=== PATIENT | female | born 1960 | race Caucasian/White ===

== ENCOUNTER 2017-03-02 19:26 | Emergency (ER) | payer OTHER ==
[2017-03-02] MEDS ORDERED: Morphine INJ* 4 MG/ML 1 ML SYRINGE IV ONE (21:30)
[2017-03-02] MEDS ORDERED: NS 0.9% 1000 ML* 1,000 ML IV ONE (21:30)
[2017-03-02] MEDS ORDERED: Ondansetron INJ* 2 MG/ML VIAL IV ONE (21:30)
[2017-03-02 22:04] LABS: Hematocrit 45 % (35-47); Hemoglobin 15.2 g/dl (12.0-16.0); Mean Corpuscular HGB Conc 34 g/dl (31-36); Mean Corpuscular Hemoglobin 31 pg (27-31); Mean Corpuscular Volume 92 fL (80-97); Mean Platelet Volume 9 um3 (7.4-10.4); Red Blood Count 4.91 10^6/ul (4.0-5.4); Red Cell Distribution Width 13 % (10.5-15); White Blood Count 12.4 10^3/ul (3.5-10.8)
[2017-03-02 22:19] LABS: Albumin 4.5 g/dL (3.2-5.2); BUN/Creatinine Ratio 25.9 (8-20); Calcium 10.1 mg/dL (8.6-10.3); EGFR African American 94.1 (>60); EGFR Non-African American 73.1 (>60); Globulin 2.9 g/dL (2-4); Total Bilirubin 1.2 mg/dL (0.2-1.0); Total Protein 7.4 g/dL (6.4-8.9)
[2017-03-02] MEDS ORDERED: Iohexol 300* (CONTRAST) 10 ML SDV IV ONE (22:33)
[2017-03-02 22:40] LABS: Urine Bacteria 1+ (Absent); Urine Bilirubin Negative (Negative); Urine Glucose Negative (Negative); Urine Nitrite Positive (Negative)
[2017-03-02 23:53] VITALS: BP 123/79
--- NOTE | 2017-03-03 00:37 | ED ---
Trent Vasques Rebecca, scribed for Tom Newton on 03/02/17 at 2130 . Complex/Multi-Sys Presentation - HPI Summary HPI Summary: Pt is a 56 y/o F who presents to ED c/o L knee pain. Pain began about 1 week ago and is now radiating up to the L knee with slight L thigh and L slaughter pain. Pain is currently moderate, ranked 5/10. Sx aggravated and alleviated by nothing , unchanged by Tylenol. Pt has been taking Tylenol to try to treat the pain, increasing her dose last night to 4 pills. After taking Tylenol last night she has been experiencing N/V, lower abdominal pain and decreased PO intake. Reports she has been unable to tolerate any food or liquid, including Cipro which was prescribed to treat UTI. - History Of Current Complaint Chief Complaint: EDGeneral Time Seen by Provider: 03/02/17 21:00 Hx Obtained From: Patient Onset/Duration: Lasting Weeks - Pain - 1 week, Still Present Severity Currently: Moderate - 5/10 Location: Pain At: - L knee, Radiates To: - L hip, thigh and slaughter Aggravating Factor(s): Nothing Alleviating Factor(s): Nothing Associated Signs And Symptoms: Positive: Nausea, Vomiting, Abdominal Pain - Lower, Decreased Oral Intake - Allergies/Home Medications Allergies/Adverse Reactions: Allergies Allergy/AdvReac Type Severity Reaction Status Date / Time No Known Allergies Allergy Verified 11/15/12 09:45 PMH/Surg Hx/FS Hx/Imm Hx Endocrine/Hematology History: Denies: Hx Diabetes, Hx Thyroid Disease Cardiovascular History: Denies: Hx Hypertension Respiratory History: Denies: Hx Asthma, Hx Chronic Obstructive Pulmonary Disease (COPD) GI History: Denies: Hx Ulcer Musculoskeletal History: Reports: Hx Osteoporosis - Surgical History Surgery Procedure, Year, and Place: exploratory lap, tubal ligation Infectious Disease History: No Infectious Disease History: Denies: Hx Hepatitis, Hx Human Immunodeficiency Virus (HIV), Traveled Outside the [place] in Last 30 Days - Family History Known Family History: Positive: Hypertension - mother, Diabetes, Other - Stroke (mother) - Social History Alcohol Use: None Substance Use Type: Reports: None Smoking Status (MU): Heavy Every Day Tobacco Smoker Review of Systems Positive: Abdominal Pain - Lower, Vomiting, Nausea, Other - Decreased PO intake Positive: Arthralgia - L knee pain with radiation to the L hip, thigh and slaughter All Other Systems Reviewed And Are Negative: Yes Physical Exam - Summary Physical Exam Summary: Appearance: Well appearing, no pain distress Skin: warm, dry, reflects adequate perfusion Head/face: normal Eyes: EOMI, MICHAEL ENT: normal Neck: supple, nontender Respiratory: CTA, breath sounds present Cardiovascular: RRR, pulses symmetrical Abdomen: tenderness over the LLQ, soft Bowel: present Musculoskeletal: strength/ROM intact, tenderness over the L leg Neuro: normal, sensory motor intact, A&Ox3 Triage Information Reviewed: Yes Vital Signs On Initial Exam: Initial Vitals Temp Pulse Resp BP Pulse Ox 97.9 F 116 20 132/91 96 03/02/17 19:42 03/02/17 19:42 03/02/17 19:42 03/02/17 19:42 03/02/17 19:42 Vital Signs Reviewed: Yes - Ian Coma Scale Coma Scale Total: 15 Diagnostics - Vital Signs Vital Signs Temp Pulse Resp BP Pulse Ox 03/02/17 20:44 99.3 F 103 20 125/76 97 03/02/17 19:42 97.9 F 116 20 132/91 96 - Laboratory Result Diagrams: 03/02/17 21:45 03/02/17 21:45 Lab Statement: Any lab studies that have been ordered have been reviewed, and results considered in the medical decision making process. - CT CT Abd/Pel CT Interpretation Completed By: Radiologist - Indeterminate subcapsular 1.1 cm hypodensity right lobe of liver, consider followup liver protocol MRI. 2.2 cm stone right renal pelvis causing caliectasis. Thickened urothelium in right renal calyces, right renal pelvis and proximal/mid right ureter, as well as proximal/mid periureteral fat stranding, question chronic inflammation due to stone versus acute urinary tract infection. Subcentimeter cortical hypodensities left kidney. No bowel obstruction, colitis, free fluid, or free air. Normal appendix. Diverticulosis colon without acute diverticulitis. Unremarkable pancreas and gallbladder. Tiny umbilical hernia containing fat. Small hiatal hernia. Arthroplasty left hip. ED physician reviewed radiology report and agrees. - Ultrasound No standard instances Ultrasound Interpretation: No Acute Changes - Venous Doppler Study: No evidence for DVT left lower extremity. ED physician reviewed radiology report and agrees. Ultrasound Interpretation Completed By: Radiologist Re-Evaluation - Re-Evaluation First Eval Re-Evaluation Time: 23:43 Change: Improved Comment: Discussed results with the pt who is feeling better. Complex Multi-Symp Course/Dx Assessment/Plan: Pt is a 56 y/o F who presents to ED c/o L knee pain. Pain began about 1 week ago and is now radiating up to the L knee with slight L thigh and L slaughter pain. Pain is currently moderate, ranked 5/10. Sx unchanged by Tylenol. Pt has been taking Tylenol to try to treat the pain, increasing her dose last night to 4 pills. After taking Tylenol last night she has been experiencing N/V, lower abdominal pain and decreased PO intake. Reports she has been unable to tolerate any food or liquid, including Cipro which was prescribed to treat UTI. Venous doppler study negative. CT results described above. UA positive for UTI. In the ED course, pt was given morphine, zofran and fluids which improved sx. She will be D/C to home with Dx of UTI, Rx for Percocet and Zofran and a follow up with her PCP. She understands and agrees. Elevated BP noted. - Diagnoses Differential Diagnoses/HQI/PQRI: Urinary Tract Infection, Other - Diverticulitis , renal colic, DVT Provider Diagnoses: UTI (urinary tract infection) Discharge - Discharge Plan Condition: Stable Disposition: HOME Prescriptions: Ondansetron ODT TAB* [Zofran 4 MG Odt TAB*] 4 mg PO Q8H PRN #20 tab.odt MDD 3 PRN Reason: Vomiting oxyCODONE/Acetamin 5/325 MG* [Percocet 5/325 TAB*] 1 tab PO Q8H PRN #9 tab MDD 3 PRN Reason: Pain Patient Education Materials: Urinary Tract Infection in Women (ED) Referrals: Prachi Randall MD [Primary Care Provider] - 2 Days The documentation as recorded by the Trent dorantes Rebecca accurately reflects the service I personally performed and the decisions made by , Tom Newton.
--- NOTE | 2017-03-03 07:14 | RAD ---
INDICATION: Pain and swelling. COMPARISON: None TECHNIQUE: Duplex interrogation of the Lowerextremity was performed. FINDINGS: Deep veins: The common femoral, great saphenous, profunda femoris, proximal, mid, and distal deep femoral, popliteal, posterior tibial, and peroneal veins are patent. There is normal compressibility, augmentation, and phasic flow. Superficial veins: There are no findings of superficial thrombophlebitis. Popliteal fossa:There is no evidence of a popliteal cyst. Soft tissues:There are no soft tissue abnormalities. IMPRESSION: Normal examination. No evidence of deep venous thrombosis
--- NOTE | 2017-03-03 07:28 | RAD ---
INDICATION: Left lower quadrant tenderness evaluate for diverticulitis. COMPARISON: There are no prior studies available for comparison. TECHNIQUE: A CT scan of the abdomen and pelvis was performed with intravenous and oral contrast following intravenous injection of 107 ml of Omnipaque 300 nonionic contrast. Contiguous axial sections were obtained from the lung bases through the symphysis pubis. Images were reconstructed in the coronal and sagittal planes. FINDINGS: The lung bases are clear. No pleural effusion is present. The liver and spleen are normal in size. The liver is decreased in attenuation consistent with fatty infiltration. There are 2 hypodense areas present within the liver. One is located in the superior subcapsular region of the right hepatic lobe measuring 1.1 x 0.8 cm in size and the second located in the anterior portion of the right hepatic lobe adjacent to the gallbladder fossa measuring 0.8 cm in size. No calcified gallstones are seen. The pancreas appears to be within normal limits. There is a large calculus in the right renal pelvis measuring 2.0 x 1.3 x 1.6 cm in size. This is causing mild dilatation of the pelvis and mild caliectasis. There is thickening of the wall of the renal pelvis and proximal ureter with adjacent stranding in the fat around these regions. There are couple small subcentimeter hypodense areas present in the left kidney most consistent with cysts. The adrenal glands appear to be within normal limits. The aorta is normal in caliber with moderate calcific plaque present. No significant enlarged retroperitoneal lymph nodes are seen. There is a small hiatal hernia. The stomach, small and large bowel appear nondistended. The appendix is within normal limits. There is mild sigmoid diverticulosis. There is no evidence for diverticulitis or colitis. There is a small periumbilical hernia containing fat. The uterus is anteverted and normal in size. No free intraperitoneal air or fluid is seen. There is a moderate lumbar scoliosis convex toward the left side. The patient is status post total left hip replacement surgery. No other focal osseous abnormalities are seen. IMPRESSION: 1. LARGE CALCULUS WITHIN THE RIGHT RENAL PELVIS CAUSING MILD HYDRONEPHROSIS. THERE IS THICKENING OF THE WALL OF THE RENAL PELVIS AND PROXIMAL URETER WITH STRANDING IN THE ADJACENT METASTATIC RETROPERITONEAL FAT POSSIBLY SECONDARY TO CHRONIC INFLAMMATION VERSUS AN ACUTE URINARY TRACT INFECTION. RECOMMEND CLINICAL CORRELATION. 2. THERE ARE 2 SMALL HYPODENSE AREAS PRESENT WITHIN THE LIVER RECOMMEND FURTHER IMAGING WITH AN MRI OF THE LIVER WITHOUT AND WITH CONTRAST.
== END 2017-03-03 00:01 | disposition home or self-care (01) ==
LOC: ED 19:26
DX: S06.0X0A Concussion without loss of consciousness, initial encounter (principal); R11.0 Nausea; R51 Headache; H53.8 Other visual disturbances; W21.02XA Struck by soccer ball, initial encounter; Y93.66 Activity, soccer; Y92.9 Unspecified place or not applicable
CPT/HCPCS: 36415; 74177; 80053; 81003; 81015; 83690; 84484; 85025; 85610; 85730; 87086; 99283; J2270; J2405; Q9967

== ENCOUNTER 2017-03-29 04:28 | Observation (INO) | payer OTHER ==
[2017-03-29] MEDS ORDERED: Ondansetron INJ* 2 MG/ML VIAL IV ONE (07:25)
[2017-03-29] MEDS ORDERED: NS 0.9% 1000 ML* 1,000 ML IV ONE ×2 (07:25→08:58)
[2017-03-29] MEDS ORDERED: Cyclobenzaprine TAB* 10 MG PO ONE (07:28)
[2017-03-29] MEDS ORDERED: Ibuprofen TAB* 600 MG PO ONE (07:28)
--- NOTE | 2017-03-29 08:07 | RAD ---
HISTORY: Headache and pain COMPARISONS: None TECHNIQUE: Multiple contiguous axial CT scans were obtained of the head without intravenous contrast. FINDINGS: HEMORRHAGE/INFARCT: There is no hemorrhage or acute infarct. MASSES/SHIFT: There is no mass or shift. EXTRA-AXIAL SPACES: There are no extra-axial fluid collections. SULCI AND VENTRICLES: The sulci and ventricles are normal in size and position for the patient's stated age. CEREBRUM: There are no focal parenchymal abnormalities. BRAINSTEM: There are no focal parenchymal abnormalities. CEREBELLUM: There are no focal parenchymal abnormalities. VESSELS: The vessels are grossly normal. PARANASAL SINUSES: The paranasal sinuses are clear. ORBITS: The orbits are unremarkable. BONES AND SOFT TISSUE: No bone or soft tissue abnormalities are noted. OTHER: None IMPRESSION: NO ACUTE INTRACRANIAL PATHOLOGY.
--- NOTE | 2017-03-29 08:25 | RAD ---
INDICATION: Headache and pain between the shoulder blades. No breathing complaint. Tobacco use. COMPARISON: March 02, 2017 CT abdomen. May 02, 2006 chest radiograph. TECHNIQUE: Dual energy PA and routine lateral views of the chest were obtained. REPORT: Mild prominence of the interstitial markings and patchy upper lung zone rarefaction. No focal pulmonary lesion, compelling alveolar consolidation, pleural effusion, pneumothorax. The heart, pulmonary vasculature, and mediastinal contours are unremarkable. Thoracic degenerative spondylosis and mild RIGHT convex curve. No thoracic fracture evident. IMPRESSION: Stigmata of potential chronic obstructive pulmonary disease and emphysema. No acute cardiopulmonary process evident.
--- NOTE | 2017-03-29 08:25 | RAD ---
HISTORY: Headache, joint pain COMPARISONS: None TECHNIQUE: Multiple contiguous axial CT scans were obtained of the cervical spine without intravenous contrast, with coronal and sagittal multiplanar reformations. FINDINGS: BRAIN: The visualized brain is unremarkable CENTRAL CANAL: Evaluation of the central canal is limited on CT technique; however, there is no obvious canalicular mass or epidural hemorrhage. ALIGNMENT: There is straightening of the cervical lordosis. VERTEBRAL BODIES: There is multilevel anterolateral marginal osteophyte formation. This most pronounced at C5-C6 and C6-C7. JOINTS: There is uncovertebral and facet osteoarthritis. MUSCULATURE: Unremarkable INTERVERTEBRAL DISCS: There is diffuse loss of intervertebral disc height. AXIAL IMAGES: C2-C3: There is no osseous neural foraminal narrowing or central canal stenosis. C3-C4: There is no osseous neural foraminal narrowing or central canal stenosis. C4-C5: There is right greater than left uncovertebral and facet hypertrophy. There is moderate right neural foraminal narrowing. There is no osseous central canal stenosis. C5-C6: There is bilateral uncovertebral and facet hypertrophy. There is moderate right and mild left neural foraminal narrowing. There is no osseous central canal stenosis. C6-C7: There is bilateral vertebral and facet hypertrophy. There is moderate left and mild right neural foraminal narrowing. There is no osseous central canal stenosis. C7-T1: There is no osseous neural foraminal narrowing or central canal stenosis. SOFT TISSUES: The visualized soft tissues of the neck are unremarkable. The prevertebral fat stripe is preserved. OTHER: None. IMPRESSION: 1. STRAIGHTENING OF THE CERVICAL LORDOSIS. 2. DEGENERATIVE DISC DISEASE AND OSTEOARTHRITIS. 3. THERE IS MULTILEVEL NEURAL FORAMINAL NARROWING DESCRIBED ABOVE. THERE IS NO OSSEOUS CENTRAL CANAL STENOSIS.
[2017-03-29 08:27] LABS: Hematocrit 41 % (35-47); Hemoglobin 13.8 g/dl (12.0-16.0); Mean Corpuscular HGB Conc 34 g/dl (31-36); Mean Corpuscular Hemoglobin 31 pg (27-31); Mean Corpuscular Volume 91 fL (80-97); Mean Platelet Volume 9 um3 (7.4-10.4); Red Blood Count 4.52 10^6/ul (4.0-5.4); Red Cell Distribution Width 13 % (10.5-15); White Blood Count 7.3 10^3/ul (3.5-10.8)
[2017-03-29 08:40] LABS: Albumin 4.1 g/dL (3.2-5.2); BUN/Creatinine Ratio 15.5 (8-20); C Reactive Protein 2.25 mg/L (< 5.00); Calcium 9.7 mg/dL (8.6-10.3); EGFR African American 109.5 (>60); EGFR Non-African American 85.2 (>60); Globulin 2.7 g/dL (2-4); Magnesium 1.9 mg/dL (1.9-2.7); Potassium 3.8 mmol/L (3.5-5.0); Total Bilirubin 0.5 mg/dL (0.2-1.0); Total Protein 6.8 g/dL (6.4-8.9)
[2017-03-29 08:45] LABS: Urine Bacteria Absent (Absent); Urine Bilirubin Negative (Negative); Urine Glucose Negative (Negative); Urine Nitrite Negative (Negative)
[2017-03-29] MEDS ORDERED: cefTRIAXone(*) 1 GM in NS 0.9% 50 ML* 50 ML IVPB ONE (08:56)
[2017-03-29 09:13] LABS: TSH (Thyroid Stimulating Horm) 3.82 mcIU/mL (0.34-5.60)
[2017-03-29] MEDS ORDERED: Morphine INJ* 4 MG/ML 1 ML CARPUJECT IV ONE (09:30)
[2017-03-29] MEDS ORDERED: Iohexol 350* (CONTRAST) 500 ML MDV IV ONE (09:49)
--- NOTE | 2017-03-29 11:31 | RAD ---
INDICATION: Back pain and abdominal pain. Evaluate for aortic dissection/aneurysm. Right-sided nephrolithiasis. COMPARISON: Chest x-ray same date; CT cervical spine same date; CT brain same date; CT abdomen pelvis March 02, 2017 TECHNIQUE: Axial source images were obtained from the thoracic inlet to the symphysis pubis following administration of 100 mL Omnipaque [address] angiographic technique coronal and sagittal reconstructed images were acquired. CHEST FINDINGS: Neck/thyroid: The visualized neck to include the thyroid appear normal. Chest wall: There are no acute abnormalities of the bony thorax or chest wall. There is no supraclavicular, infraclavicular, or axillary lymphadenopathy. Lungs : There are no pulmonary parenchymal masses or infiltrates. The pulmonary interstitium appears normal. There are no endobronchial lesions. Cardiomediastinal structures: The heart is normal in size. There is no pericardial effusion. There is no evidence of aortic aneurysm or dissection. There is borderline ectasia of the ascending aorta The pulmonary vessels appear normal. There is no CT evidence of acute pulmonary embolic disease. There is no mediastinal or hilar adenopathy. The esophagus appears normal. Pleura : There are no pleural-based masses or effusions. ABDOMINAL/PELVIC FINDINGS: Liver: The liver is normal in size. There are several hypervascular areas in the right hepatic lobe. One is in the periphery near the dome and there are at least 2 others one in the medial aspect of the inferior right hepatic lobe and one in the caudal most portion of the right hepatic lobe. These correspond to subtle hypodense lesions on the earlier CT examination. Consider flash filling hemangiomas. Suggest follow-up MR imaging. There is no ductal dilatation. Gallbladder: There are no calcified gallstones. There is no evidence of wall thickening or pericholecystic fluid. Spleen: The spleen is normal in size. There are no masses on early arterial phase imaging. Pancreas: There is no evidence of pancreatic mass or ductal dilatation. Adrenal glands: There is no evidence of adrenal mass. Kidneys: The kidneys are normal in size and position. There are prompt nephrograms and there is prompt excretion bilaterally. There are no renal parenchymal masses. There is right-sided nephrolithiasis with a 1.7 cm calculus in right renal pelvis, unchanged position. There is enhancement and thickening of the proximal right ureter with mild renal calyx and ureteral dilatation. The appearance is unchanged. Suggest urology referral. Adenopathy: There is no evidence of adenopathy by size criteria. Fluid collections: There are no free or localized fluid collections. Vessels: There is no evidence of abdominal aortic aneurysm or dissection. The visceral branches arise satisfactorily. The iliac vessels normal in caliber. There are mild intimal calcifications of the infrarenal abdominal aorta. The IVC is unremarkable GI tract: The upper GI tract is unremarkable. The terminal ileum appears, ileocecal valve, and appendix appear normal. There are scattered diverticula of the sigmoid colon. There is no CT evidence of acute diverticulitis. Pelvic organs: The uterus and adnexa appear normal. Evaluation is mildly limited due to beam hardening artifact from left hip arthroplasty. Bladder: There are no bladder masses. Evaluation is mildly limited due to beam hardening artifact from left hip arthroplasty. Abdominal and pelvic soft tissues: The extraperitoneal abdominal and pelvic soft tissues appear normal.. Osseous structures: There are no acute osseous findings. There is left hip arthroplasty IMPRESSION: 1. No CT evidence of aortic aneurysm or dissection. 2. No CT evidence of acute pulmonary embolic disease. 3. Indeterminate hypervascular hepatic lesions. Suggest follow-up MR imaging. 4. Calculus right renal pelvis with mild obstructive findings. There is uroepithelial thickening and enhancement of the proximal right ureter. Suggest urology consultation.
--- NOTE | 2017-03-29 12:34 | ED ---
Jonny Vasques Angela, scribed for Yon Conte MD on 03/29/17 at 0724 . Headache - HPI Summary HPI Summary: This pt is a 56 y/o female presenting to [facility] c/o pain across the back of her neck that radiates to her head x4 days. Pt additionally c/o upper back pain, right shoulder pain that radiates to her right arm, and right hip pain. She states mowing the lawn before the onset of her pain 4 days ago "for the first time in years." Her shoulder pain has been going on for 2 days. She notes her headache is only on one side of her head. Pt denies changes in vision, trouble swallowing, chest pain, SOB, palpitations, dizziness, syncope, abd pain, vomiting, diarrhea, dysuria, urinary frequency, weakness or numbness in UE or LE , fever. Her pain is aggravated by laying down. She denies recent fall or trauma. Pt endorses constipation. Pt has rubbed herve's vapor rub with no relief last night. She was in the ED 2 weeks ago for a UTI. Pt notes taking an aspirin every day. PMHx: TIA (2011 while reading a book). Pt does not take any anti-hypertensive medications. PSHx: total left hip replacement. NKDA. 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 - Allergies/Home Medications Allergies/Adverse Reactions: Allergies Allergy/AdvReac Type Severity Reaction Status Date / Time No Known Allergies Allergy Verified 03/29/17 05:01 Home Medications: Home Medications Aspirin TAB* [Aspirin 325 MG TAB*] 325 mg PO DAILY 03/29/17 [History Confirmed 03/29/17] PMH/Surg Hx/FS Hx/Imm Hx Endocrine/Hematology History: Denies: Hx Diabetes, Hx Thyroid Disease Cardiovascular History: Denies: Hx Hypertension Respiratory History: Denies: Hx Asthma, Hx Chronic Obstructive Pulmonary Disease (COPD) GI History: Denies: Hx Ulcer History: Denies: Hx Renal Disease Musculoskeletal History: Reports: Hx Osteoporosis Neurological History: Reports: Hx Transient Ischemic Attacks (TIA) - Surgical History Surgery Procedure, Year, and Place: exploratory lap, tubal ligation Infectious Disease History: No Infectious Disease History: Denies: Hx Hepatitis, Hx Human Immunodeficiency Virus (HIV), Traveled Outside the [place] in Last 30 Days - Family History Known Family History: Positive: Cardiac Disease - Mother: [place], Hypertension - mother, Diabetes, Other - Stroke (mother) - Social History Alcohol Use: None Substance Use Type: Reports: None Smoking Status (MU): Heavy Every Day Tobacco Smoker Review of Systems Negative: Fever, Chills Negative: Blurred Vision ENT: Negative Negative: Palpitations, Chest Pain Negative: Shortness Of Breath Positive: Other - constipation. Negative: Abdominal Pain, Vomiting, Diarrhea, Nausea Positive: Other - upper back pain, neck pain, right arm pain, right hip pain Skin: Negative Positive: Headache. Negative: Weakness All Other Systems Reviewed And Are Negative: Yes Physical Exam Triage Information Reviewed: Yes Vital Signs On Initial Exam: Initial Vitals Temp Pulse Resp BP Pulse Ox 98.2 F 88 16 169/100 98 03/29/17 04:50 03/29/17 04:50 03/29/17 04:50 03/29/17 04:50 03/29/17 04:50 Vital Signs Reviewed: Yes Appearance: Positive: Well-Appearing, No Pain Distress Skin: Positive: Warm, Skin Color Reflects Adequate Perfusion Head/Face: Positive: Normal Head/Face Inspection Eyes: Positive: EOMI ENT: Positive: Normal ENT inspection Neck: Positive: Other: - patient has tenderness in the upper c spine and worse with range of motion. No step off. Negative: Nuchal Rigidity Respiratory/Lung Sounds: Positive: Clear to Auscultation, Breath Sounds Present Cardiovascular: Positive: RRR. Negative: Murmur Abdomen Description: Positive: Nontender Musculoskeletal: Positive: Strength/ROM Intact Neurological: Positive: Sensory/Motor Intact, Alert, Oriented to Person Place, Time, CN Intact II-III Psychiatric: Positive: Normal - Oak Coma Scale Best Eye Response: 4 - Spontaneous Best Motor Response: 6 - Obeys Commands Best Verbal Response: 5 - Oriented Diagnostics - Vital Signs Vital Signs Temp Pulse Resp BP Pulse Ox 03/29/17 04:50 98.2 F 88 16 169/100 98 - Laboratory Result Diagrams: 03/29/17 08:10 03/29/17 08:10 Lab Statement: Any lab studies that have been ordered have been reviewed, and results considered in the medical decision making process. - Radiology Chest XR Xray Interpretation: Positive (See Comments) - IMPRESSION:stigmata of potential chronic obstructive pulmonary disease and emphysema. No acute cardiopulmonary process evident. ED physician has reviewed this radiology report and agrees. Radiology Interpretation Completed By: Radiologist - CT Brain CT CT Interpretation: No Acute Changes - IMPRESSION: No acute intracranial pathology. ED physician has reviewed this radiology report and agrees. CT Interpretation Completed By: Radiologist Cervical spine CT CT Interpretation: Positive (See Comments) - IMPRESSION: 1. STRAIGHTENING OF THE CERVICAL LORDOSIS. 2. DEGENERATIVE DISC DISEASE AND OSTEOARTHRITIS. 3. THERE IS MULTILEVEL NEURAL FORAMINAL NARROWING DESCRIBED ABOVE. THERE IS NO OSSEOUS CENTRAL CANAL STENOSIS. ED physician has reviewed this radiology report and agrees. CT Interpretation Completed By: Radiologist - EKG 0756 Cardiac Rate: NL - 74 bpm EKG Rhythm: Sinus Rhythm EKG Interpretation: No STEMI - Additional Comments Diagnostic Additional Comments: Chest/Abd/Pel CTA: IMPRESSION: 1. No CT evidence of aortic aneurysm or dissection. 2. No CT evidence of acute pulmonary embolic disease. 3. Indeterminate hypervascular hepatic lesions. Suggest follow-up MR imaging. 4. Calculus right renal pelvis with mild obstructive findings. There is uroepithelial thickening and enhancement of the proximal right ureter. Suggest urology consultation. ED physician has reviewed this radiology report and agrees. Re-Evaluation - Re-Evaluation First Eval Re-Evaluation Time: 09:19 Change: Unchanged Comment: The patient keeps complaining of pain in between her shoulder blades. She has had pain in right side of pelvis and hip without any imparement in ROM. She felt nauseated earlier with mild ache in low abdomen. This could be UTI as she has a UTI by labs, but she is complaining of more pain than one would expect between her shoulders. Will do CTA to eval aorta and be sure no other acute serious cause of her pain. Headache Course/Dx - Course Assessment/Plan: Pt is a 56 y/o female c/o pain across the back of her neck that radiates to her head x4 days. Pt additionally c/o upper back pain, right shoulder pain that radiates to her right arm, and right hip pain. She states mowing the lawn before the onset of her pain 4 days ago "for the first time in years." Chest XR reveals stigmata of potential chronic obstructive pulmonary disease and emphysema. No acute cardiopulmonary process evident. Cervical spine CT reveals 1. Straightening of the cervical lordosis. 2. Degenerative disc disease and osteoarthritis. 3. There is multilevel neural foraminal narrowing as described above. There is no osseous central canal stenosis. Brain CT is negative for acute intracranial pathology. ED physician has reviewed this radiology report and agrees. Discussed with Dr Lang and Dr Avilez and she will be admitted for a stent, and pyelonephritis - Diagnoses Provider Diagnoses: Pyelonephritis, Ureter obstruction - Physician Notifications Discussed Care Of Patient With: Kevin Lang Time Discussed With Above Provider: 11:45 Instructed by Provider To: Other - I spoke with Dr. Lang's nurse asking for a consult. 1222: I discussed the pt's case with Dr. Lang. 1231: I spoke with Dr. Avilez, hospitalist. Discharge - Discharge Plan Condition: Good Disposition: ADMITTED TO [facility] Referrals: Prachi Randall MD [Primary Care Provider] - The documentation as recorded by the Jonny dorantes Angela accurately reflects the service I personally performed and the decisions made by me, Yon Conte MD.
[2017-03-29] MEDS ORDERED: Cyclobenzaprine TAB* 10 MG PO PRN (13:28)
[2017-03-29] MEDS ORDERED: Ondansetron INJ* 2 MG/ML VIAL IV PRN (13:28)
[2017-03-29] MEDS ORDERED: Acetaminophen TAB* 325 MG PO PRN (13:28)
[2017-03-29] MEDS ORDERED: NS 0.9% 1000 ML* 1,000 ML IV SCH (13:30)
[2017-03-29] MEDS: HYDROmorphone INJ* 1 MG/ML CARPUJECT SYRINGE IV SLOW PU PRN ×2 (13:41→23:02)
[2017-03-29] MEDS ORDERED: Famotidine IV* 10 MG/ML 2 ML (20 mg) IV SLOW PU ONE (13:43)
[2017-03-29] MEDS: Lidocaine PATCH 5%* 1 PATCH TRANSDERM SCH (14:48)
[2017-03-29] MEDS ORDERED: Iohexol 180 (CONTRAST) 10 ML SDV IV ONE (16:37)
[2017-03-29] MEDS ORDERED: Gentamicin ADULT (*) 40 MG/ML VIAL ONE (16:43)
[2017-03-29] MEDS ORDERED: Midazolam* 1 MG/ML 5 ML VIAL (5 MG) ONE (16:51)
[2017-03-29] MEDS ORDERED: KETAMINE HCL* 50 MG/ML 10 ML VIAL ONE (16:51)
[2017-03-29] MEDS ORDERED: fentaNYL* 50 MCG/ML 2 ML VIAL (100 MCG VIAL) ONE (16:51)
--- NOTE | 2017-03-29 17:12 | HP ---
CC: Dr. Prachi Randall; Dr. Lang * HISTORY AND PHYSICAL: DATE OF ADMISSION: 03/29/17 PRIMARY CARE PROVIDER: Dr. Prachi Randall CONSULTING UROLOGIST: Dr. Lang. ATTENDING PHYSICIAN WHILE IN THE HOSPITAL: Janeth West MD * (report dictated by Pawel Elkins NP) CHIEF COMPLAINT: 1. Neck pain. 2. Headache. 3. Right flank pain. HISTORY OF PRESENTING ILLNESS: Ms. Sorto is a 56-year-old female patient who has a history of TIA only who presents to our ER today stating that over the weekend she was helping her in mow lawn and she unfortunately while mowing the lawn, she turned her back and neck and looked over her shoulder to make sure that mower was operating properly and she developed neck pain, headache, she felt that something pulled when she did this. Since then, she has been having neck pain intermittently and headache as well throughout the entire weekend. She also says that she aches allover. She has pain between her shoulder blades and she also says that she has been having some pain in her right flank and has been feeling nauseated. She denied having any fevers, denied any dysuria or any frequency. There has been no chest pain. She came into the ED. Initially, it was felt that this was almost musculoskeletal related; however, they did do imaging after they found that abnormal urine, which did show a pretty significantly sized nephrolithiasis in the right ureter. So because of this, Urology was consulted. It was felt that she was going to need stent placement and antibiotics and hospitalist service was asked to evaluate for admission. PAST MEDICAL HISTORY: Significant for TIA. PAST SURGICAL HISTORY: She has had: 1. Left total hip replacement. 2. Exploratory laparotomy. 3. Tubal ligation. MEDICATIONS: Home meds include aspirin 325 mg p.o. daily ALLERGIES: Include no known drug allergies. FAMILY HISTORY: Mother had a history of diabetes, PR and CVA. Father's history , she does not know. SOCIAL HISTORY: She is about a half pack a day smoker. She has been smoking for about 4 years. She rarely drinks alcohol, . Surrogate decision maker is her . REVIEW OF SYSTEMS: There is no documented fever. She denied having any significant weight change. There was no double vision. She denies having any ear discharge. There has been no reports of rhinorrhea. No sore throat. No thyroid enlargement. Denied having any chest pain. There has no been no orthopnea. No nocturnal dyspnea. There has been right-sided flank pain and nausea, but no vomiting, no dysuria. No frequency. There was no dysuria. No loss of consciousness. No pruritus. No skin ulcerations. Review of 14 systems completed, all others negative. PHYSICAL EXAMINATION GENERAL: At this time, Ms. Sorto is a 56-year-old female patient. She appears to be well nourished, well-developed, she is sitting in the ER stretcher. She does not appear to be in any acute distress. VITAL SIGNS: Reveals blood pressure 142/82 with a pulse of 63, respirations 18 , O2 sat 97%, and temperature 98.2. HEENT: Head: Atraumatic and normocephalic. Eyes: EOMs are intact. Sclerae anicteric and not pale. NECK: Supple. Throat: Oral mucosa appears to be moist. No oropharyngeal erythema. LUNGS: Clear to auscultation bilaterally. No wheezes, rales, or rhonchi. HEART: Sounds S1 and S2. Regular rate and rhythm. No murmurs, rubs, or gallops. ABDOMEN: Soft, flat, nontender. She did have right-sided CVA tenderness. EXTREMITIES: Pulses are 2+ throughout. She is able to move all 4 extremities with 5/5 strength. NEUROLOGIC: She is awake. She is alert. She is oriented x3. Tongue midline. Solar Sales Manager are equal. No gross focal deficits. SKIN: Grossly intact. DIAGNOSTIC STUDIES/LAB DATA: WBC 7.3, RBC of 4.52, hemoglobin 13.8, hematocrit 41, platelet count of 279. D-dimer less than 200. Sodium was 138, potassium was 3.8, chloride of 108, bicarb 24, BUN 11, creatinine 0.71, glucose 97, lactic 0.7, calcium 9.7, mag 1.9. Total bili 0.5, AST 26, ALT 40, alk phos 63. Troponin 0. CRP at 2.25. Albumin of 4.1. Urine showed 3+ blood, 2+ leukocyte esterase, 3+ WBC, 2+ rbc. She had multiple imaging in the ED. CT of the chest, abdomen, and pelvis showed no CT evidence of aortic aneurysm or dissection. No CT evidence of acute PE. Indeterminate hypervascularization hepatic lesions, suggest follow up MRI imaging. Calculus, in the right renal pelvis with mild obstructive findings. There is ureteral epithelial thickening and enhancement of the proximal ureter to suggest urology consultation. Cervical spine CT today. Impression: Strengthening of the cervical lordosis, degenerative disk disease, and osteoarthritis. There was multiple level neural foraminal narrowing as described above. No osseous central canal stenosis. Chest x-ray showed a stigmata potential chronic obstructive pulmonary disease and emphysema. No acute cardio process is evident. She did have a brain CT which showed no acute intracranial pathology. She did have an EKG obtained today, which showed a normal sinus rhythm of the rate of 74. No ST elevation or T-wave inversions. We reviewed her previous EKG , it is similar. Old medical records reviewed. ASSESSMENT AND PLAN: Ms. Sorto is a 56-year-old female patient. She is well- nourished, well-developed, she is sitting in the ER stretcher, does not appear to be in acute distress. She presented to the ER today with complaints of generalized pain and now also having right flank pain, found to have nephrolithiasis with mild obstructive uropathy and a urinary tract infection. She would be admitted under observation status for: 1. Nephrolithiasis with obstructive uropathy. At this point, Dr. Lang will take the patient to the OR later today and place a stent in the patient and he will also continue her on IV fluids and antibiotics and I will continue to follow her. I did order p.r.n. pain medications and Zofran. 2. Musculoskeletal pain. I suspect the pain that she has in her neck and head is probably from her turning her head when she was mowing a lawn and is probably musculoskeletal. CT was negative. She has no radiculopathy. At this point, we will monitor her. I did order a Lidoderm patch and will continue to follow. 3. History of transient ischemic attack. When she is able, we will restart the aspirin. 4. Fluids, electrolytes, and nutrition. She will be n.p.o. with normal saline 125 an hour. 5. DVT prophylaxis. She will be placed on SCDs. 6. Code status. Full code. TIME SPENT: Time spent on the admission was approximately 60 minutes, greater than half of the time was spent [id number] with the patient obtaining my history and physical, other half of the time spent going over the plan of care with the patient and implementing plan of care. I did discuss the plan of care with my attending, Dr. West, she is in agreement. PAWEL ELKINS, NERY [id number]/[facility] #: [id number] ARTURO
[2017-03-29] MEDS ORDERED: Propofol* 10 MG/ML 20 ML BTL IV PUSH ONE (17:31)
[2017-03-29] MEDS ORDERED: Ondansetron INJ* 2 MG/ML VIAL ONE (17:31)
[2017-03-29] MEDS ORDERED: Dexamethasone IV* 4 MG/ML 1 ML (4 MG) ONE (17:31)
[2017-03-29] MEDS ORDERED: Succinylcholine* 20 MG/ML 10 ML VIAL ONE (17:31)
[2017-03-29] MEDS ORDERED: Lidocaine 2% PF * 5 ML VIAL ONE (17:31)
[2017-03-29] MEDS ORDERED: fentaNYL* 50 MCG/ML 2 ML VIAL (100 MCG VIAL) IV PRN (17:39)
[2017-03-29] MEDS ORDERED: oxyCODONE/Acetamin 5/325 MG* TAB PO PRN (17:39)
[2017-03-29] MEDS ORDERED: PROCHLORPERAZINE INJ 5 MG/ML 2 ML VIAL IV PRN (17:39)
[2017-03-29] MEDS ORDERED: Morphine INJ* 2 MG/ML 1 ML CARPUJECT IV PRN (17:39)
[2017-03-29] MEDS ORDERED: Labetalol IV* 5 MG/ML 20 ML VIAL ONE (17:43)
--- NOTE | 2017-03-29 18:23 | RAD ---
CPT II Codes: 6045F INDICATION: Nephrolithiasis TECHNIQUE: Intraoperative fluoroscopy was provided during retrograde pyelogram and stent placement. FINDINGS: 7 spot films depict retrograde pyelography showing mild right-sided hydronephrosis followed by anatomic placement of a right ureteral stent.. Fluoroscopy time: 16 seconds IMPRESSION: As above.
--- NOTE | 2017-03-29 20:30 | RAD ---
INDICATION: Right ureteral stent placement COMPARISON: Retrograde pyelogram from the same day TECHNIQUE: A single AP view of the abdomen and pelvis was obtained. FINDINGS: There is been interval placement of a right ureteral stent. A 2 cm density overlying the right collecting system corresponds to a large calcification seen on the recent CTA. Incidentally noted is abnormal deployment of the proximal loop of the ureteral stent. IMPRESSION: INTERVAL PLACEMENT OF AN ANATOMICALLY ALIGNED RIGHT URETERAL STENT.
[2017-03-29] MEDS ORDERED: Lidocaine Patch REMOVE* 1 NOTE MISC SCH (21:00)
[2017-03-30] MEDS ORDERED: NS 0.9% 1000 ML* 1,000 ML IV SCH (01:15)
[2017-03-30 05:37] LABS: Hematocrit 38 % (35-47); Hemoglobin 12.8 g/dl (12.0-16.0); Mean Corpuscular HGB Conc 34 g/dl (31-36); Mean Corpuscular Hemoglobin 31 pg (27-31); Mean Corpuscular Volume 92 fL (80-97); Mean Platelet Volume 10 um3 (7.4-10.4); Red Blood Count 4.13 10^6/ul (4.0-5.4); Red Cell Distribution Width 13 % (10.5-15); White Blood Count 5.8 10^3/ul (3.5-10.8)
[2017-03-30 05:57] LABS: EGFR African American 150.2 (>60); EGFR Non-African American 116.8 (>60); Potassium 4.1 mmol/L (3.5-5.0)
[2017-03-30 08:16] VITALS: BP 128/96
[2017-03-30] MEDS: Lidocaine PATCH 5%* 1 PATCH TRANSDERM SCH (08:40)
[2017-03-30] MEDS ORDERED: cefTRIAXone VIAL(*) 1,000 MG in NS 0.9% 50 ML* 50 ML IVPB SCH (09:00)
--- NOTE | 2017-03-30 09:35 | OP ---
CC: Dr. Prachi Randall; Dr. Walton; Dr. Lang OPERATIVE REPORT: DATE OF OPERATION: 03/29/17 DATE OF : 60 SURGEON: Kevin Lang MD ANESTHESIOLOGIST: Dr. Holland ANESTHESIA: General. PRE-OP DIAGNOSES: 1. Calculus, right renal pelvis. 2. Right hydronephrosis. 3. Possible urinary tract infection. POST-OP DIAGNOSES: 1. Calculus, right renal pelvis. 2. Right hydronephrosis. 3. Possible urinary tract infection. OPERATIVE PROCEDURE: Cystoscopy, right retrograde pyelogram, and right stent insertion. INDICATIONS: Kinga Sorto is a 56-year-old lady who was evaluated from the emergency room for right flank pain. CT scan revealed a 1.7 cm calculus in the right renal pelvis with the right hydronephr osis and possible associated urinary infection. She is being brought in for urgent right stent inse rtion and will require either shock wave lithotripsy or percutaneous nephrolithotripsy for definitiv e treatment of the calculus. Because of the large size of the calculus, she will probably require m ultiple procedures and I have explained this to her. COMPLICATIONS: None. STENT USED: 7-Salvadorean stent, right ureter. OPERATIVE FINDINGS: 1. Large calculus right renal pelvis. 2. Retrograde pyelogram appearance consistent with partial ureteropelvic junction obstruction. POSTOPERATIVE CONDITION: Stable. DESCRIPTION OF PROCEDURE: After induction of general anesthesia, the patient was placed in dorsal l ithotomy position. Sequential compression devices were in place and functioning. Initial cystoscop y revealed a normal-appearing bladder. A guidewire was introduced into the right ureter. A large o paque calculus was noted in the region of the right renal pelvis. Retrograde pyelogram revealed a n ormal appearing ureter. There was a distinct narrowing at the right ureteropelvic junction suggesti ve of a partial UPJ obstruction. A 7-Salvadorean stent was introduced and positioned under fluoroscopic monitoring with good proximal and distal positioning obtained. The bladder was emptied. The patien t tolerated the procedure satisfactorily and was transferred back to recovery area in stable conditi on. [id number]/[facility] #: [id number]
--- NOTE | 2017-03-31 01:29 | DS ---
CC: Dr. Prachi Randall; Dr. Lang * DISCHARGE SUMMARY: DATE OF ADMISSION: 03/29/17 DATE OF DISCHARGE: 03/30/17 PRIMARY CARE PROVIDER: Dr. Prachi Randall. CONSULTING UROLOGIST: Dr. Lang. DISCHARGING PROVIDER: REBECCA Johnson. SUPERVISING PHYSICIAN: Dain Patel MD * (DICTATED BY REBECCA JOHNSON) PRIMARY DISCHARGE DIAGNOSIS: Obstructing right ureteral stone within the renal pelvis measuring 1.[address], now status post retrograde pyelogram with right ureteral stent placement with associated urinary tract infection. SECONDARY DISCHARGE DIAGNOSIS: History of transient ischemic attack. DISCHARGE MEDICATIONS: 1. Aspirin 325 mg p.o. daily. 2. Bactrim DS 800/160 one tablet p.o. twice daily x7 days. Medication Changes: Bactrim x7 days. HOSPITAL IMAGIN. CT of the brain shows no acute pathology. 2. Chest x-ray shows stigmata of COPD and emphysema. No acute process present. 3. CT of the cervical spine shows some straightening of cervical lordosis with degenerative disk disease and osteoarthritis. There is multilevel neuroforaminal narrowing as described above. No osseous central canal stenosis. 4. CTA of the chest, abdomen and pelvis shows no CT evidence of aneurysm or dissection. No CT evidence of pulmonary embolic disease. Indeterminate hypervascular hepatic lesions to suggest followup MRI. Calculus within the right renal pelvis with mild obstructive findings. 5. Retrograde pyelogram. 6. KUB shows interval placement of anatomically aligned right ureteral stent. HOSPITAL COURSE: This is a 56-year-old female with prior history of TIA, who presented to the emergency department with complaints of somewhat generalized pain including her back, flank, and neck. The neck pain seemed to be associated with mowing her lawn but the back pain was more sudden onset. Initial urinalysis was suggestive of possible urinary tract infection with 3+ blood, 2+ leuk esterase, and 3+ wbc's. Initial labs apart from the urinalysis was unremarkable. CT imaging of the chest abdomen and pelvis showed 1.7 cm stone within the right renal pelvis with some mild obstructive findings. Dr. Lang was consulted on this case, who completed retrograde pyelogram with right ureteral stent placement. The patient reported near complete resolution of all of her prior pain. She was having some urinary frequency and dysuria following the procedure but otherwise asymptomatic. DISPOSITION AND FOLLOWUP PLAN: The patient is being discharged to home. She will be discharged with additional 7 days of Bactrim due to presence of possible infection. She requires close followup with Dr. Lang and will likely a lithotripsy procedure and eventually stent retrieval. Also recommend followup with patient's primary care provider regarding this hospitalization. REBECCA JOHNSON [id number]/[facility] #: [id number] ART[place]
[2017-03-31 16:15] LABS: Lyme Disease IgG Ab WB Positive (Negative)
== END 2017-03-30 10:00 | disposition home or self-care (01) ==
LOC: ED 04:28 → SSU 13:38
PROVIDERS: ADMIT Internal Medicine; ATTEND Hospitalist
DX: N13.6 Pyonephrosis (principal); R51 Headache; M54.2 Cervicalgia; R10.9 Unspecified abdominal pain; M54.9 Dorsalgia, unspecified; M40.50 Lordosis, unspecified, site unspecified; M50.320 Other cervical disc degeneration, mid-cervical region, unspecified level; M47.892 Other spondylosis, cervical region; M48.02 Spinal stenosis, cervical region; F17.200 Nicotine dependence, unspecified, uncomplicated; K76.9 Liver disease, unspecified; J44.9 Chronic obstructive pulmonary disease, unspecified
CPT/HCPCS: 36415; 70450; 71020; 71275; 72125; 74000; 74174; 74420; 80048; 80053; 81003; 81015; 82550; 83605; 83735; 83880; 84443; 84484; 85025; 85379; 85610; 86140; 86617; 86618; 87086; 93005; 96361; 96365; 96375; 96376; 99284; A9270-GY; C1876; G0378; J0330; J0696; J1100; J1170; J1580; J2250; J2270; J2405; J2704; J3010; Q9967

== ENCOUNTER 2017-09-20 13:49 | Observation (INO) | payer OTHER ==
[2017-09-20] MEDS ORDERED: Pantoprazole IV* 40 MG IV ONE (14:52)
--- NOTE | 2017-09-20 15:47 | RAD ---
HISTORY: GI bleeding COMPARISONS: March 29, 2017 VIEWS: 1: frontal portable view of the chest at 3:32 PM FINDINGS: LINES AND TUBES: None. CARDIOMEDIASTINAL SILHOUETTE: The cardiomediastinal silhouette is normal for portable technique. PLEURA: The costophrenic angles are sharp. No pleural abnormalities are noted. LUNG PARENCHYMA: The lungs are clear. ABDOMEN: The upper abdomen is clear. There is no subphrenic gas. BONES AND SOFT TISSUES: There is a scoliotic curvature of the spine. IMPRESSION: NO ACTIVE CARDIOPULMONARY DISEASE.
[2017-09-20 16:03] LABS: Urine Appearance Cloudy; Urine Blood 2+ (Negative); Urine Color Yellow; Urine Ketones Negative (Negative); Urine Protein Negative (Negative); Urine Red Blood Cell Absent (Absent); Urine Specific Gravity 1.005 (1.010-1.030); Urine Urobilinogen Negative (Negative); Urine White Blood Cell Trace(0-5/hpf) (Absent)
[2017-09-20 16:14] LABS: ABS Basophils 0 10^3/ul (0-0.2); ABS Eosinophils 0.1 10^3/ul (0-0.6); ABS Lymphocytes 2.6 10^3/ul (1.0-4.8); ABS Monocytes 0.6 10^3/ul (0-0.8); ABS Neutrophils 4.3 10^3/ul (1.5-7.7); ABS Nucleated RBC 0 10^3/ul; Eosinophil % 0.8 % (0-6); Hematocrit 42 % (35-47); Hemoglobin 14.2 g/dl (12.0-16.0); Mean Corpuscular HGB Conc 34 g/dl (31-36); Mean Corpuscular Hemoglobin 30 pg (27-31); Mean Corpuscular Volume 91 fL (80-97); Mean Platelet Volume 9.3 um3 (7.4-10.4); Nucleated Red Blood Cells % 0; Platelet Count 310 10^3/ul (150-450); Red Blood Count 4.68 10^6/ul (4.0-5.4); Red Cell Distribution Width 14 % (10.5-15); White Blood Count 7.5 10^3/ul (3.5-10.8)
[2017-09-20 16:25] LABS: INR 0.94 (0.77-1.02)
[2017-09-20 16:50] LABS: EGFR Non-African American 82.2 (>60)
[2017-09-20] MEDS ORDERED: PEG 3000 GI LAVAGE* 1 GALLON PO ONE (18:11)
--- NOTE | 2017-09-20 18:22 | ED ---
Dong Vasques Jennifer, scribed for Tom Newton on 09/20/17 at 1451 . GI/ HPI - HPI Summary HPI Summary: The patient is a 57 year old female with GI bleeding and blood clots in her stool for one week. The patient reports the blood is bright red. She denies vomiting, abdominal pain, shortness of breath, and chest pain. The patient adds that she had bright red bleeding today and that it has been constant. She additionally reports taking 325 mg of Aspirin once a day for a few years. - History of Current Complaint Chief Complaint: EDGIBleed Time Seen by Provider: 09/20/17 14:05 Stated Complaint: BLOODY STOOL Hx Obtained From: Patient Onset/Duration: Started Weeks Ago - 1 week, Still Present Timing: Constant Severity: Mild Current Severity: Mild Pain Intensity: 0 Associated Signs and Symptoms: Positive: Other: - Bright red blood, blood clots in stool Additional Signs & Symptoms: Positive: Other: - NEG: vomiting, abdominal pain, shortness of breath, chest pain Aggravating Factor(s): Nothing Alleviating Factor(s): Nothing - Allergy/Home Medications Allergies/Adverse Reactions: Allergies Allergy/AdvReac Type Severity Reaction Status Date / Time No Known Allergies Allergy Verified 09/20/17 13:51 PMH/Surg Hx/FS Hx/Imm Hx Endocrine/Hematology History: Denies: Hx Diabetes, Hx Thyroid Disease Cardiovascular History: Denies: Hx Hypertension Respiratory History: Denies: Hx Asthma, Hx Chronic Obstructive Pulmonary Disease (COPD) GI History: Denies: Hx Ulcer History: Reports: Hx Kidney Stones, Other Problems/Disorders - UTI Denies: Hx Renal Disease Musculoskeletal History: Reports: Hx Osteoporosis Sensory History: Reports: Hx Contacts or Glasses - glasses Denies: Hx Hearing Aid Opthamlomology History: Reports: Hx Contacts or Glasses - glasses Neurological History: Reports: Hx Transient Ischemic Attacks (TIA) - one per pt - Surgical History Surgery Procedure, Year, and Place: exploratory lap, tubal ligation Hx Anesthesia Reactions: No Infectious Disease History: No Infectious Disease History: Denies: Hx Clostridium Difficile, Hx Hepatitis, Hx Human Immunodeficiency Virus (HIV), Hx of Known/Suspected MRSA, Hx Shingles, Hx Tuberculosis, History Other Infectious Disease, Traveled Outside the [place] in Last 30 Days - Family History Known Family History: Positive: Cardiac Disease - Mother: [place], Hypertension - mother, Diabetes, Other - Stroke (mother) - Social History Alcohol Use: None Substance Use Type: Reports: None Hx Tobacco Use: Yes Smoking Status (MU): Heavy Every Day Tobacco Smoker Type: Cigarettes Amount Used/How Often: 0.5 pk Have You Smoked in the Last Year: Yes Review of Systems Negative: Chest Pain Negative: Shortness Of Breath Positive: Other - Bright red blood. Negative: Abdominal Pain, Vomiting Positive: other - Blood clots in stool All Other Systems Reviewed And Are Negative: Yes Physical Exam - Summary Physical Exam Summary: Appearance: Well appearing, no pain distress Skin: warm, dry, reflects adequate perfusion Head/face: normal Eyes: EOMI, MICHAEL ENT: normal Neck: supple, non-tender Respiratory: CTA, breath sounds present Cardiovascular: RRR, pulses symmetrical ~ Abdomen: non-tender, soft Bowel: present. Blood in the rectal examination. Musculoskeletal: normal, strength/ROM intact Neuro: normal, sensory motor intact, A&Ox3 Triage Information Reviewed: Yes Vital Signs On Initial Exam: Initial Vitals Temp Pulse Resp BP Pulse Ox 97.9 F 99 16 163/101 95 09/20/17 13:51 09/20/17 13:51 09/20/17 13:51 09/20/17 13:51 09/20/17 13:51 Vital Signs Reviewed: Yes Diagnostics - Vital Signs Vital Signs Temp Pulse Resp BP Pulse Ox 09/20/17 13:51 97.9 F 99 16 163/101 95 - Laboratory Lab Results: Lab Results 09/20/17 09/20/17 09/20/17 Range/Units 15:26 15:58 15:58 WBC 7.5 (3.5-10.8) 10^3/ul RBC 4.68 (4.0-5.4) 10^6/ul Hgb 14.2 (12.0-16.0) g/dl Hct 42 (35-47) % MCV 91 (80-97) fL MCH 30 (27-31) pg MCHC 34 (31-36) g/dl RDW 14 (10.5-15) % Plt Count 310 (150-450) 10^3/ul MPV 9.3 (7.4-10.4) um3 Neut % (Auto) 56.5 (38-83) % Lymph % (Auto) 34.0 (25-47) % Denali % (Auto) 8.3 H (0-7) % Eos % (Auto) 0.8 (0-6) % Baso % (Auto) 0.4 (0-2) % Absolute Neuts (auto) 4.3 (1.5-7.7) 10^3/ul Absolute Lymphs (auto) 2.6 (1.0-4.8) 10^3/ul Absolute Monos (auto) 0.6 (0-0.8) 10^3/ul Absolute Eos (auto) 0.1 (0-0.6) 10^3/ul Absolute Basos (auto) 0 (0-0.2) 10^3/ul Absolute Nucleated RBC 0 10^3/ul Nucleated RBC % 0 INR (Anticoag Therapy) 0.94 (0.77-1.02) APTT 42.8 H (26.0-36.3) seconds Sodium (139-145) mmol/L Potassium (3.5-5.0) mmol/L Chloride (101-111) mmol/L Carbon Dioxide (22-32) mmol/L Anion Gap (2-11) mmol/L BUN (6-24) mg/dL Creatinine (0.51-0.95) mg/dL Est GFR ( Amer) (>60) Est GFR (Non-Af Amer) (>60) BUN/Creatinine Ratio (8-20) Glucose (70-100) mg/dL Lactic Acid (0.5-2.0) mmol/L Calcium (8.6-10.3) mg/dL Total Bilirubin (0.2-1.0) mg/dL AST (13-39) U/L ALT (7-52) U/L Alkaline Phosphatase (34-104) U/L Total Protein (6.4-8.9) g/dL Albumin (3.2-5.2) g/dL Globulin (2-4) g/dL Albumin/Globulin Ratio (1-3) Lipase (11.0-82.0) U/L Urine Color Yellow Urine Appearance Cloudy Urine pH 6.0 (5-9) Ur Specific Calhoun 1.005 L (1.010-1.030) Urine Protein Negative (Negative) Urine Ketones Negative (Negative) Urine Blood 2+ A (Negative) Urine Nitrate Negative (Negative) Urine Bilirubin Negative (Negative) Urine Urobilinogen Negative (Negative) Ur Leukocyte Esterase 2+ A (Negative) Urine WBC (Auto) Trace(0-5/hpf) (Absent) Urine RBC (Auto) Absent (Absent) Ur Squamous Epith Cells Present A (Absent) Urine Bacteria 1+ A (Absent) Urine Glucose Negative (Negative) Blood Type Antibody Screen 09/20/17 09/20/17 09/20/17 Range/Units 15:58 15:58 15:58 WBC (3.5-10.8) 10^3/ul RBC (4.0-5.4) 10^6/ul Hgb (12.0-16.0) g/dl Hct (35-47) % MCV (80-97) fL MCH (27-31) pg MCHC (31-36) g/dl RDW (10.5-15) % Plt Count (150-450) 10^3/ul MPV (7.4-10.4) um3 Neut % (Auto) (38-83) % Lymph % (Auto) (25-47) % Denali % (Auto) (0-7) % Eos % (Auto) (0-6) % Baso % (Auto) (0-2) % Absolute Neuts (auto) (1.5-7.7) 10^3/ul Absolute Lymphs (auto) (1.0-4.8) 10^3/ul Absolute Monos (auto) (0-0.8) 10^3/ul Absolute Eos (auto) (0-0.6) 10^3/ul Absolute Basos (auto) (0-0.2) 10^3/ul Absolute Nucleated RBC 10^3/ul Nucleated RBC % INR (Anticoag Therapy) (0.77-1.02) APTT (26.0-36.3) seconds Sodium 140 (139-145) mmol/L Potassium 4.1 (3.5-5.0) mmol/L Chloride 105 (101-111) mmol/L Carbon Dioxide 25 (22-32) mmol/L Anion Gap 10 (2-11) mmol/L BUN 13 (6-24) mg/dL Creatinine 0.73 (0.51-0.95) mg/dL Est GFR ( Amer) 105.7 (>60) Est GFR (Non-Af Amer) 82.2 (>60) BUN/Creatinine Ratio 17.8 (8-20) Glucose 97 (70-100) mg/dL Lactic Acid 0.9 (0.5-2.0) mmol/L Calcium 10.2 (8.6-10.3) mg/dL Total Bilirubin 0.50 (0.2-1.0) mg/dL AST 15 (13-39) U/L ALT 16 (7-52) U/L Alkaline Phosphatase 69 (34-104) U/L Total Protein 7.5 (6.4-8.9) g/dL Albumin 4.4 (3.2-5.2) g/dL Globulin 3.1 (2-4) g/dL Albumin/Globulin Ratio 1.4 (1-3) Lipase 30 (11.0-82.0) U/L Urine Color Urine Appearance Urine pH (5-9) Ur Specific Calhoun (1.010-1.030) Urine Protein (Negative) Urine Ketones (Negative) Urine Blood (Negative) Urine Nitrate (Negative) Urine Bilirubin (Negative) Urine Urobilinogen (Negative) Ur Leukocyte Esterase (Negative) Urine WBC (Auto) (Absent) Urine RBC (Auto) (Absent) Ur Squamous Epith Cells (Absent) Urine Bacteria (Absent) Urine Glucose (Negative) Blood Type A Positive Antibody Screen Negative Result Diagrams: 09/20/17 15:58 09/20/17 15:58 Lab Statement: Any lab studies that have been ordered have been reviewed, and results considered in the medical decision making process. - Radiology CXR Xray Interpretation: No Acute Changes - NO ACTIVE CARDIOPULMONARY DISEASE. Dr. Newton has reviewed this report. Radiology Interpretation Completed By: Radiologist - EKG 15:01 Cardiac Rate: NL EKG Rhythm: Sinus Rhythm - 87 BPM EKG Comparison: No Significant Change GIGU Course/Dx - Course Course Of Treatment: The patient is a 57 year old female with GI bleeding and blood clots in her stool for one week. In the ED course the patient was given Protonix. Bloodwork and Urinalysis were obtained. EKG and CXR were obtained. The patient is diagnosed with GI bleed. The patient was admitted to [facility] by Dr. Pina. Dr. Hoffmann, log cooker, saw the patient in the ED, and will prepare her for a colonoscopy tomorrow at 14:00. - Diagnoses Differential Diagnoses - Female: Other - GI bleeding/diverticulosis Provider Diagnoses: GI bleed - Physician Notifications Discussed Care Of Patient With: Kymberly Pina Time Discussed With Above Provider: 16:50 Instructed by Provider To: Admit As Inpatient - Also, Dr. Hoffmann, log cooker, saw the patient in the ER. He will do the scope tomorrow at 14:00. The patient will be prepared for the colonoscopy. Discharge - Sign-Out/Discharge Documenting (check all that apply): Discharge - Discharge Plan Condition: Good Disposition: ADMITTED TO [facility] Referrals: Prachi Randall MD [Primary Care Provider] - - Billing Disposition and Condition Condition: GOOD Disposition: HOSP-[facility] The documentation as recorded by the Dong dorantes Jennifer accurately reflects the service I personally performed and the decisions made by , Tom Newton.
--- NOTE | 2017-09-20 22:21 | CONS ---
GASTROENTEROLOGY CONSULT DATE: CONSULTING PHYSICIANS: Tom Newton MD; Prachi Randall MD REASON FOR CONSULTATION: Rectal bleeding for 9 days. HISTORY OF PRESENT ILLNESS: This 57-year-old woman states that her usual bowel pattern is every other day. That is an improvement from once a week or less that had been true until 10 or 15 years ago. She credits coffee and eating salads regularly to the improvement. She is used to having some anorectal discomfort or stinging and a little bit of rectal bleeding on the tissue. Eight or nine days ago, she began filling the toilet with blood and since then, she has had times where blood is dripping out. It is generally bright red or clots. It has been running out. There has been no dizziness or syncope. She has not had any abdominal tenderness or fever. A colonoscopy has been recommended in the past, but yet she has not had one. She takes an aspirin 325 on account of a neurologic event called a TIA 11 years ago. PAST MEDICAL HISTORY: 1. Kidney stone in fall, treated by Dr. Lang. 2. Status post left total hip replacement. 3. Exploratory laparotomy. 4. Tubal ligation. 5. COPD - she still is smoking somewhat. 6. Small umbilical hernia - seen on CT scan in fall. 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 8. History of TIA - she reportedly could not remember immediate family members ' names and was seen here in the emergency room. SOCIAL HISTORY: She is . Her , Yon, is her surrogate decision maker. She is smoking a half pack a day. There is a 6-year gap in her hospital visit history and she says that on account of not going to the doctor very often unless "I absolutely have to." REVIEW OF SYSTEMS: No history of fever, vomiting, hemoptysis, PA, palpitations , syncope, hepatitis, jaundice, recent fall, or fracture. She has been voluntarily dieting going from 205 to 170. Those are her numbers. PHYSICAL EXAMINATION: She is a moderately overweight, middle-aged woman, in no overt distress. HEENT exam shows no icterus. She has no adenopathy. Her lungs are clear with diminished breath sounds. Heart sounds are regular. The abdomen is obese, symmetric, normal bowel sounds, soft and nontender. Perianal inspection shows some fold swelling. Digital rectal shows average tone and firm gummy stool filling the rectum and there is some blood, but it is fresh and no clot and nothing is running out. Extremities show no edema. LABORATORY DATA: Hemoglobin 14, white count normal. IMPRESSION: This 57-year-old woman has had 9 days of rectal bleeding. The absence of pain is against ischemic colitis. There could be a slow diverticular ooze, but that is unusual. A polyp or mass could ooze slowly in this fashion, but this pattern is unusual for that also. Internal hemorrhoids are a possibility though overall the history is atypical that usually would not present as one continuous episode over 9 days. It clearly seems indication to admit for observation, prep and do an acute colonoscopy. [id number]/[facility] #: [id number] [facility]OSPITALPoonam
--- NOTE | 2017-09-20 23:44 | HP ---
CC: Dr. Prachi Randall * ADMISSION HISTORY AND PHYSICAL: DATE OF ADMISSION: 09/20/17 PRIMARY CARE PHYSICIAN: Dr. Prachi Randall. MY ATTENDING FOR TODAY: Kymberly Pina DO * (DICTATED BY ANNA CURRY NP) CHIEF COMPLAINT: Rectal bleeding. HISTORY OF PRESENT ILLNESS: This is a very pleasant 57-year-old female patient , who reports several days of bleeding from the rectum. The patient states that she has had alaina bloody stools as well as passage of clots for about a week now. The patient reached out to Dr. Randall, her primary care provider, who advised that she come to the emergency department for evaluation of her GI bleeding. PAST MEDICAL HISTORY: Significant for TIA, kidney stones, osteoarthritis. Treatment with doxycycline for tick-borne disease. In March of last year, she was on doxycycline for 1 month after a tick bite. PAST SURGICAL HISTORY: Significant for left total hip replacement, tubal ligation, exploratory laparotomy, ureteral stent placement, and renal stone excision out at [facility]. MEDICATIONS: The patient takes aspirin 325 mg daily. ALLERGIES: She has no known drug allergies. FAMILY HISTORY: Mother with massive stroke, coronary artery disease and stenting. SOCIAL HISTORY: The patient does not drink alcohol, only socially. Does not do any illicit drugs. Does smoke half a pack per day for 30 years. REVIEW OF SYSTEMS: The patient denies any fever, fatigue or chills. No upper respiratory symptoms. No chest pain, no shortness of breath, no abdominal pain , no nausea, no vomiting. No urinary complaints. No arthralgias or myalgias. Is complaining of bloody stool; however, it is painless and no further constitutional complaints. PHYSICAL EXAMINATION GENERAL: The patient is awake, alert, well-appearing. VITAL SIGNS: Currently, blood pressure 138/96, heart rate 99, respiratory rate 16, O2 saturation 95% to 97% on room air. HEENT: The patient is atraumatic, normocephalic. PERRLA with nonicteric sclerae. NECK: Supple, nontender. No JVD noted. No carotid bruits auscultated. LUNGS: Diminished throughout the lung disla with some mild expiratory wheeze on the left lower lobe. Otherwise, she is clear at the apices. CARDIOVASCULAR: S1, S2 present. No murmurs, gallops, or rubs appreciated. Rate and rhythm are regular. She has regular sinus rhythm on telemetry, was mildly tachycardic upon arrival. ABDOMEN: Soft, nontender, nondistended. Positive bowel sounds in all 4 quadrants. No organomegaly appreciated. : Deferred. MUSCULOSKELETAL: There is no clubbing, no cyanosis, no edema. She has +2 distal pulses palpable. She has a steady gait. NEUROLOGIC: Grossly intact with no focal deficits. PSYCHIATRIC: She is cooperative and appropriate. DIAGNOSTIC STUDIES/LAB DATA: WBC 7.5, RBC 4.68, hemoglobin 14.2, hematocrit 42 , platelets 310. Sodium 140, potassium 4.1, chloride 105, CO2 25, BUN 13, creatinine 0.73, GFR 82.2, glucose 97, lactic acid 0.9, calcium 10.2. Bilirubin 0.50, AST 15, ALT 16, alk phos 69, total protein 7.5, albumin 4.4, globulin 3.1, lipase is 30. Imaging: There is chest x-ray for today that shows no acute cardiopulmonary disease. Urinalysis shows yellow cloudy urine, pH of 6.0, specific gravity of 1.005, negative protein, negative ketones, 2+ blood, negative for nitrites, negative for bilirubin, 2+ leukocyte esterase, trace wbc' s, no rbc's, positive squamous epithelial cells, 1+ urine bacteria, and urine glucose is negative. IMPRESSION: This is a 57-year-old female patient with some lower GI bleeding. She has been seen by Dr. Hoffmann of GI service with consultation already performed. The patient will be admitted to inpatient for GI bleeding and colonoscopy tomorrow. DIAGNOSES: 1. GI bleeding. 2. History of transient ischemic attack. 3. Diastolic hypertension. 4. Tobacco abuse. PLAN: Again, the plan is for the patient to have inpatient colonoscopy tomorrow. We will start her on a GoLYTELY bowel regimen beginning this evening. She will get 2 L tonight and 2 L at 8 o'clock tomorrow morning in preparation for her procedure. We are going to hold her aspirin. I think this needs to be evaluated little further moving forward if she does need such dose high dose aspirin at this point if she is going to continue to have bleeding. She can have a regular diet and then be n.p.o. after midnight in anticipation of her test and sedation. My only concern for her at this point is her smoking, which has been counseled on. She was told at one point, she does have underlying chronic obstructive pulmonary disease; however, the patient seems to be resistant to that diagnosis. Judging by her lung sounds and persistent unproductive cough, it is likely she does have at least stage 1 chronic obstructive pulmonary disease; however, being that her procedure will be quick tomorrow, I do not feel that this is going to be an issue for anesthesia at this time. Also, the patient states she does not have any chest pain or orthopnea, no dyspnea on exertion. She has not had baseline cardiac workup; however, she does have some family history and smoking. This is something that should be addressed as an outpatient after she is over this acute phase of illness. The rest of the patient's course will be determined by further diagnostics, laboratories, and any other input from other providers as warranted during this admission. For DVT prophylaxis, the patient is to have SCDs. She is a full code. Her surrogate decision maker is her . This plan of care has been discussed with Dr. Kymberly Pina, who is in agreement with the plan. ANNA CURRY, NERY [id number]/[facility] #: [id number] ARTURO
[2017-09-21] MEDS ORDERED: PEG 3000 GI LAVAGE* 1 GALLON PO ONE (08:00)
[2017-09-21] MEDS ORDERED: Ondansetron INJ* 2 MG/ML VIAL IV PRN (10:17)
[2017-09-21] MEDS ORDERED: NS 0.9% 500 ML* 500 ML IV ONE (10:18)
[2017-09-21] MEDS ORDERED: NS 0.9% 1000 ML* 1,000 ML IV SCH (10:30)
[2017-09-21 11:43] LABS: Hematocrit 38 % (35-47); Hemoglobin 12.7 g/dl (12.0-16.0)
[2017-09-21] MEDS ORDERED: fentaNYL* 50 MCG/ML 2 ML VIAL (100 MCG VIAL) ONE (13:28)
[2017-09-21] MEDS ORDERED: Midazolam* 1 MG/ML 5 ML VIAL (5 MG) ONE (13:28)
[2017-09-21 16:12] VITALS: BP 125/59
[2017-09-21] MEDS ORDERED: Hydrocortisone SUPP* 25 MG SUPP (2.5%) PR SCH (21:00)
--- NOTE | 2017-09-22 13:58 | PRO ---
CC: Dr. Prachi Randall GASTROENTEROLOGY PROCEDURE NOTE: DATE OF PROCEDURE: REFERRING PHYSICIAN: Dr. Prachi Randall. PROCEDURE: Colonoscopy to cecum with snare polypectomies. PREOPERATIVE DIAGNOSIS: Nine days of rectal bleeding in this 57-year-old female. She was passing sma ll amounts of bright red blood with stool and without. Her hematocrit on admission was 42, now 38, l ikely due to hydration. The patient's INR is normal. She has not undergone prior colonoscopy. She has no family history of colon cancer. She was admitted yesterday for her rectal bleeding. POSTOPERATIVE DIAGNOSES: 1. 6-mm polyp at the ascending colon, status post cold snare polypectomy with complete resection and retrieval. 2. 6-mm polyp x2 of the rectum status post cold snare polypectomy with complete resection and retrie jackie. 3. Scattered diverticulosis throughout the left colon. There is no evidence of old or new blood thr oughout the colon or any signs of stigmata of recent bleeding. 4. Prominent internal hemorrhoids visualized on direct and retroflex view. PROCEDURE MEDICATIONS: 1. Versed 6 mg IV 2. Fentanyl 125 mcg IV. INSTRUMENT: PCF-190 Olympus variable high-definition pediatric colonoscope. DESCRIPTION OF PROCEDURE: Informed consent was obtained prior to performing this procedure. The ins trument was introduced into the anus and passed to the rectum under direct visualization. The instru ment was then advanced up to the cecum. The cecum was confirmed by visualization of the appendiceal orifice, ileocecal valve, and tri-folds of the cecum. The colonoscope was slowly withdrawn. The pre paration was good with excellent visualization with irrigation and suctioning. Of note, there was no old or new blood throughout the colon. The terminal ileum was intubated with no blood seen. The sc ope was slowly withdrawn. The cecum was normal. In the proximal ascending colon, a 6-mm polyp was n oted and removed via cold snare polypectomy with complete resection and retrieval. Mucosa of the tra nsverse colon, descending colon, and sigmoid colon was normal. Rare scattered sigmoid diverticulosis was present. Again no old or new blood present throughout the colon. No stigmata of recent bleedin g noted. In the rectum, there were two 6- mm polyps, removed via cold snare polypectomy with complet e resection and retrieval. Prominent internal and external hemorrhoids were noted on direct and retr oflex view as well as digital examination. The patient tolerated procedure well and there were no co mplications. RECOMMENDATIONS: I suspect bleeding secondary to the presence of hemorrhoids. I will prescribe Anus ol hydrocortisone 25 mg suppositories b.i.d. Low fiber diet. I think the patient can likely be disc harged to follow up in the office in 2 to 4 weeks and perhaps hemorrhoidal banding should be consider ed. [id number]/[facility] #: [id number]
--- NOTE | 2017-09-22 16:23 | DS ---
CC: Dr. Prachi Randall * DISCHARGE SUMMARY: DATE OF ADMISSION: 09/20/17 DATE OF DISCHARGE: 09/21/17 ATTENDING FOR THIS CASE: Kymberly Pina DO, who is also my attending for today. * (DICTATED BY ANNA CURRY NP) PRIMARY CARE PHYSICIAN: Dr. Prachi Randall. HOSPITAL COURSE: This is a very pleasant 57-year-old female patient who reports a history of rectal bleeding since 2 weeks. The patient states that it is persistent, she was passing clots and had some alaina red blood in her stool and in the toilet. The patient denied any weakness, fever, fatigue or chills. No abdominal pain. No other symptoms other than the bleeding when the clots became worse. She called Dr. Randall's office to look for some direction and she was referred to the ER for evaluation. The patient was admitted to observation, seen by GI who recommended colonoscopy. She had bowel prep started yesterday evening and underwent her colonoscopy today at approximately 2 p.m. The patient is currently seen in her room in no acute distress. PHYSICAL EXAMINATION: Vital signs today for day of discharge are blood pressure 125/59, heart rate 71, respiratory rate 16, temperature 98.1, satting at 97% on room air. HEENT: The patient is atraumatic, normocephalic. PERRLA with nonicteric sclerae. Oral mucosa is moist. Neck is supple, nontender. No JVD noted. Cardiovascular: S1, S2 are present. Rate and rhythm are regular with no murmurs, gallops, or rubs noted. Lungs are clear bilaterally. The upper lobes diminished with mild expiratory wheeze, at the lower lobes at her baseline. Abdomen is soft, nontender, non-distended. Positive bowel sounds in all 4 quadrants. No organomegaly appreciated. was deferred. Musculoskeletal: There is no clubbing, no cyanosis, no edema. She has +2 distal pulses palpable and a steady gait. Neurologic: Grossly intact with no focal deficits. Psychiatric: She is cooperative and appropriate. DIAGNOSTIC STUDIES/LAB DATA: Repeat H and H today 12.7 and 38, H and H at admission was 14.2 and 42, so she is essentially not far off her baseline. We do not have the report from her colonoscopy as yet; however, I was told by the nursing staff that she received and reports that the patient's colonoscopy revealed some small polyps, but primarily internal hemorrhoids that were bleeding, did not appear to be any acute masses or other processes noted during her procedure. The patient was readied for discharge this evening and her only medication at home is aspirin given that her bleeding is now currently stopped. She can resume her aspirin as she did have history of TIA in the past. Also, it was recommended she use Anusol suppositories as needed. DISCHARGE DIAGNOSES: 1. Rectal bleeding. 2. Internal hemorrhoids. Again, the patient was discharged in stable condition. All questions were answered. The patient states her under-standing of her discharge instructions, followups and medications. ANNA CURRY, WEATHERIZATION COORDINATOR [id number]/[facility] #: [id number] ARTURO
== END 2017-09-21 19:10 | disposition home or self-care (01) ==
LOC: ED 13:49 → SSU 18:10
PROVIDERS: ADMIT Hospitalist; ATTEND Hospitalist
PROC: 0DBK8ZX Excision of Ascending Colon, Via Natural or Artificial Opening Endoscopic, Diagnostic (ICD-10-PCS; principal; 2017-09-21)
PROC: 0DBP8ZX Excision of Rectum, Via Natural or Artificial Opening Endoscopic, Diagnostic (ICD-10-PCS; 2017-09-21)
DX: K62.5 Hemorrhage of anus and rectum (principal); D12.7 Benign neoplasm of rectosigmoid junction; K63.5 Polyp of colon; K64.8 Other hemorrhoids; M19.90 Unspecified osteoarthritis, unspecified site; Z79.82 Long term (current) use of aspirin; Z86.73 Personal history of transient ischemic attack (TIA), and cerebral infarction without residual deficits; I10 Essential (primary) hypertension; F17.210 Nicotine dependence, cigarettes, uncomplicated; J44.9 Chronic obstructive pulmonary disease, unspecified; Z87.442 Personal history of urinary calculi; Z79.899 Other long term (current) drug therapy
CPT/HCPCS: 36415; 71045; 80053; 81003; 81015; 83605; 83690; 85014; 85018; 85025; 85610; 85730; 86850; 86900; 86901; 87086; 88305; 93005; 96374; 96375; 99156; 99157; 99285; A9270-GY; G0378; J2250; J2405; J3010

== ENCOUNTER 2022-11-19 08:17 | Observation (INO) ==
[~2022-11-19 08:17] MED LIST: Buffered Lidocaine 1% SYRIN 1 ml INTRADERM ONE; Famotidine IV 10 MG/ML 2 ml VIAL (20 mg) IV ONE; Lactated Ringers 1000 ml BAG 1,000 ML IV SCH; ROPIVACAINE 5 MG/ML 30 ML BTL (0.5%) ONE; Tranexamic Acid 1,000 MG in NS 0.9% 50 ML IV ONE
[2022-11-19] MEDS ORDERED: Propofol 10 MG/ML 20 ML BTL ONE (08:31)
[2022-11-19] MEDS ORDERED: Lidocaine 2% PF 5 ML VIAL ONE (08:32)
[2022-11-19] MEDS ORDERED: Midazolam 2 mg/2 ml VIAL 1 mg/ml 2 ml VIAL (2 mg) ONE (08:38)
[2022-11-19] MEDS ORDERED: Ketamine HCL 50 mg/ml 10 ml VIAL (500 MG) ONE (08:38)
[2022-11-19 09:20] LABS: Rapid COVID-19 Molecular Undetected (Undetected)
[2022-11-19] MEDS ORDERED: Famotidine IV 10 MG/ML 2 ml VIAL (20 mg) ONE (09:20)
[2022-11-19] MEDS ORDERED: ceFAZolin 2 GM in NS PREMIX 2 GM/100 ML BAG IVPB ONE (09:20)
[2022-11-19] MEDS ORDERED: Rocuronium 50 mg VIAL 10 mg/ml 5 ml VIAL (50 mg) ONE (10:16)
[2022-11-19] MEDS ORDERED: fentaNYL 250 mcg/5 ml 50 MCG/ML 5 ml VIAL (250 MCG) ONE (10:17)
[2022-11-19] MEDS ORDERED: Levalbuterol HFA INHALER MDI ONE (10:36)
[2022-11-19] MEDS ORDERED: HYDROmorphone 0.5 MG/0.5 ML SYRINGE ONE ×2 (10:51→11:34)
[2022-11-19] MEDS ORDERED: ceFAZolin VIAL VIAL ONE (10:54)
[2022-11-19] MEDS ORDERED: Dexamethasone IV 4 MG/ML VIAL 1 ml VIAL ONE (11:23)
[2022-11-19] MEDS ORDERED: Ondansetron 4 mg VIAL 2 MG/ML 2 ml VIAL ONE (11:23)
[2022-11-19] MEDS ORDERED: Acetaminophen IV 1 GM/100ML 1,000 MG/100 ML BAG IV ONE (11:37)
[2022-11-19] MEDS ORDERED: fentaNYL 100 mcg/2 ml 50 MCG/ML VIAL ONE (11:41)
[2022-11-19] MEDS ORDERED: fentaNYL 100 mcg/2 ml 50 MCG/ML VIAL IV PRN (11:57)
[2022-11-19] MEDS ORDERED: HYDROmorphone 1 MG/1 ML SYRINGE IV PRN (11:57)
[2022-11-19] MEDS ORDERED: Naloxone 0.4 mg VIAL 0.4 mg/ml 1 ml VIAL IV PRN (11:57)
[2022-11-19] MEDS ORDERED: Morphine 2 MG/ML SYRINGE IV PRN (13:17)
[2022-11-19] MEDS ORDERED: Magnesium Hydroxide LIQ 30 ML UDC PO PRN (13:17)
[2022-11-19] MEDS ORDERED: Lactulose 30 ml UDC PO PRN (13:17)
[2022-11-19] MEDS ORDERED: Ondansetron ODT 4 mg TAB 4 MG TAB PO PRN (13:17)
[2022-11-19] MEDS ORDERED: Ondansetron 4 mg VIAL 2 MG/ML 2 ml VIAL IV PRN (13:17)
[2022-11-19] MEDS ORDERED: Lactated Ringers 1000 ml BAG 1,000 ML IV SCH (14:00)
[2022-11-19] MEDS: ceFAZolin 2 GM PREMIX 2 GM/50 ML BAG IVPB SCH (19:22)
[2022-11-19] MEDS: Magnesium Hydroxide LIQ 30 ML UDC PO SCH (19:59)
[2022-11-20] MEDS: ceFAZolin 2 GM PREMIX 2 GM/50 ML BAG IVPB SCH ×2 (01:45→09:55)
[2022-11-20 06:14] VITALS: BP 127/62
[2022-11-20 06:21] LABS: Hemoglobin 11.8 g/dL (11.5-14.3); Mean Platelet Volume 9.5 fL (7.5-11.2); Platelet Count 270 10^3/uL (150-450)
[2022-11-20 06:43] LABS: Calcium 9.2 mg/dL (8.6-10.3); Creatinine, Serum 0.79 mg/dL (0.51-0.95); Potassium 4.9 mmol/L (3.5-5.0); eGFR CKD-EPI 84.5 (>60)
[2022-11-20] MEDS: Magnesium Hydroxide LIQ 30 ML UDC PO SCH (08:14)
[2022-11-20] MEDS ORDERED: Vitamin THERAPEUTIC TAB PO SCH (09:00)
== END 2022-11-20 10:40 | disposition home or self-care (01) ==
LOC: SSU 08:17 → OR 08:17 → EDSTATUS 10:30
PROVIDERS: ADMIT Orthopaedic Surgery Adult Reconstructive Orthopaedic Surgery; ATTEND Orthopaedic Surgery Adult Reconstructive Orthopaedic Surgery